=== PATIENT | female | born 1960 | race Caucasian/White ===

== ENCOUNTER 2021-03-16 11:08 | Emergency (ER) | payer BC ==
[~2021-03-16] VITALS: Ht 167.6 cm; Wt 99.8 kg
[~2021-03-16 11:08] MED LIST: IBUPROFEN 800800 M1; PAXIL CR25 MG PO; XANAX 0.5 MG0.5 M1
[2021-03-16] MEDS ORDERED: LISINOPRIL20 MG PO (11:18)
[2021-03-16] MEDS ORDERED: METFORMIN HCL500 M3 PO (11:18)
[2021-03-16] MEDS ORDERED: ZOLOFT100 MG PO (11:18)
[2021-03-16] MEDS ORDERED: AMITRIPTYLINE H50 M3 PO (11:19)
[2021-03-16] MEDS ORDERED: GLYBURIDE 2.52.5 M1 PO (11:20)
[2021-03-16] MEDS ORDERED: ATORVASTATIN CA80 MG PO (11:20)
[2021-03-16 11:31] LABS: ABSOLUTE BASOPHILS 0.1 thou/uL (0.0-0.2); ABSOLUTE EOSINOPHILS 0.1 thou/uL (0.0-0.7); ABSOLUTE LYMPHOCYTES 1.5 thou/uL (0.8-5.3); ABSOLUTE MONOCYTES 0.3 thou/uL (0.0-1.2); ABSOLUTE NEUTROPHILS 4.3 thou/uL (1.6-8.1); BASOPHILS 1.7 %; BE 1.5 mmol/L (-2 to +3); HEMATOCRIT 44.9 % (37.0-47.0); HEMOGLOBIN 15.5 gm/dL (12.0-15.0); LYMPHOCYTES 24.1 %; MCHC 34.6 g/dL (28.0-37.0); MCV 86.7 fL (80.0-100.0); MONOCYTES 5.4 %; MPV 7.5 fl. (7.2-11.1); NUCLEATED RBCS 0 /100WBC; PCO2 VENOUS 52.9 mmHg (41.0-51.0); PLATELET COUNT* 133 thou/uL (150-400); PO2 VENOUS 30.5 mmHg (35.0-45.0); POLYS 67.8 %; RBC 5.18 mil/uL (4.20-5.00); RDW-CV 14.9 % (10.5-14.5); WBC 6.3 thou/uL (4.0-11.0)
[2021-03-16 11:39] LABS: CALCIUM 9.4 mg/dL (8.5-10.1); CREATININE 0.7 mg/dL (0.6-1.3); POTASSIUM 4.8 mmol/L (3.5-5.1)
[2021-03-16 11:42] LABS: APTT 22.8 Seconds (25.0-31.3); PROTIME 10.3 Seconds (9.20-11.50)
[2021-03-16 11:50] LABS: ALBUMIN 3.4 g/dL (3.4-5.0); TOTAL BILIRUBIN 0.5 mg/dL (<0.1-1.0); TOTAL PROTEIN 6.8 g/dL (6.4-8.2)
[2021-03-16 12:20] VITALS: BP 142/72
[2021-03-16 12:21] LABS: URINE BILIRUBIN NEGATIVE (Negative); URINE BLOOD TRACE (Negative); URINE CLARITY CLEAR; URINE COLOR YELLOW; URINE GLUCOSE-RANDOM 3+ (Negative); URINE KETONES TRACE (Negative); URINE LEUKOCYTES-REFLEX NEGATIVE (Negative); URINE NITRITE-REFLEX NEGATIVE (Negative); URINE PROTEIN NEGATIVE (Negative); URINE SPECIFIC GRAVITY >= 1.030 (1.005-1.030)
--- NOTE | 2021-03-16 15:46 | EKG ---
[place] [address] ELECTROCARDIOGRAM REPORT Name: GAL SHARPE Room: [facility]#: [id number] Admission: 03/16/21 Attend Phys: Discharge: 03/16/21 Date of : 62 Date of Service: 03/16/21 1131 Report #: [id number] THIS REPORT FOR: //name// [facility] ED Test Date: 2021-03-16 Test Time: 11:31:07 Pat Name: GAL SHARPE Department: Room: Gender: Placement Director: [facility] : 1960 Requested By: Ronnie Seals Order Number: [id number] MD: Yao Tejada Measurements Intervals Russell Rate: 81 P: 47 NE: 134 QRS: 83 QRSD: 94 T: 82 QT: 441 QTc: 512 Interpretive Statements Sinus rhythm Borderline T abnormalities, anterior leads Compared to ECG 08/11/2010 05:44:50 T-wave abnormality still present Electronically Signed On 03-16-2021 15:46:35 CDT by Yao Tejada [email or web address] <ELECTRONICALLY SIGNED> By: Yao Tejada MD, FAC 03/16/21 1546 1131 1131 Yao Tejada MD, [facility] /EPI
== END 2021-03-16 12:20 | disposition home or self-care (01) ==
LOC: M.ERS 11:08
PROVIDERS: Family Medicine
DX: E11.9 Type 2 diabetes mellitus without complications (principal); Z20.822 Contact with and (suspected) exposure to COVID-19; R53.1 Weakness; Z79.899 Other long term (current) drug therapy; Z98.890 Other specified postprocedural states; Z79.84 Long term (current) use of oral hypoglycemic drugs

== ENCOUNTER → 2021-04-07 | Outpatient (CLI) | payer BC ==
[~2021-04-07] MED LIST changes: +AMITRIPTYLINE H50 M3 PO; +ATORVASTATIN CA80 MG PO; +GLYBURIDE 2.52.5 M1 PO; +LISINOPRIL20 MG PO; +METFORMIN HCL500 M3 PO; +ZOLOFT100 MG PO
[2021-04-07 14:40] LABS: ABSOLUTE EOSINOPHILS 0.1 thou/uL (0.0-0.7); ABSOLUTE LYMPHOCYTES 2.4 thou/uL (0.8-5.3); ABSOLUTE MONOCYTES 0.7 thou/uL (0.0-1.2); ABSOLUTE NEUTROPHILS 6.8 thou/uL (1.6-8.1); BASOPHILS 0.5 %; EOSINOPHILS 0.6 %; HEMATOCRIT 49.9 % (37.0-47.0); HEMOGLOBIN 17.4 gm/dL (12.0-15.0); LYMPHOCYTES 24.3 %; MCV 85.7 fL (80.0-100.0); MONOCYTES 6.7 %; MPV 7.5 fl. (7.2-11.1); NUCLEATED RBCS 0 /100WBC; PLATELET COUNT* 205 thou/uL (150-400); POLYS 67.9 %; RBC 5.82 mil/uL (4.20-5.00); RDW-CV 14.9 % (10.5-14.5); WBC 10.1 thou/uL (4.0-11.0)
[2021-04-07 14:53] LABS: ALBUMIN 4.1 g/dL (3.4-5.0); ALKALINE PHOSPHATASE 205 U/L (46-116); ANION GAP 9 mmol/L (7-16); BUN 15 mg/dL (7-18); CALCIUM 9.5 mg/dL (8.5-10.1); CHLORIDE 96 mmol/L (98-107); CHOLESTEROL 266 mg/dL (<200); CO2 26 mmol/L (21-32); CREATININE 0.9 mg/dL (0.6-1.3); GLUCOSE 324 mg/dL (70-99); HDL CHOLESTEROL 41 mg/dL (>40); LDL CHOLESTEROL 179 mg/dL (<100); POTASSIUM 4.7 mmol/L (3.5-5.1); SGOT 74 U/L (15-37); SGPT 103 U/L (30-65); SODIUM 131 mmol/L (136-145); TC:HDL 6.5 Ratio (Not establshd); TOTAL BILIRUBIN 0.6 mg/dL (<0.1-1.0); TOTAL PROTEIN 7.8 g/dL (6.4-8.2); TRIGLYCERIDE 233 mg/dL (<150); VLDL 47 mg/dL (<40)
[2021-04-07 14:54] LABS: SERUM ASSESSMENT Clear
[2021-04-08 04:07] LABS: GLYCOHEMOGLOBIN (HGB A1C) 11.2 % (4.8-5.6)
== END ==
LOC: M.LAB 14:22
PROVIDERS: ATTEND Family Medicine
DX: M15.0 Primary generalized (osteo)arthritis (principal); E11.65 Type 2 diabetes mellitus with hyperglycemia; I10 Essential (primary) hypertension; E78.2 Mixed hyperlipidemia

== ENCOUNTER 2021-05-04 19:38 | Emergency (ER) | payer BC ==
[~2021-05-04] VITALS: Ht 167.6 cm; Wt 99.8 kg
[2021-05-04] MEDS ORDERED: RYBELSUS7 MG PO (19:50)
[2021-05-04 20:26] LABS: ABSOLUTE BASOPHILS 0.1 thou/uL (0.0-0.2); ABSOLUTE LYMPHOCYTES 1.6 thou/uL (0.8-5.3); ABSOLUTE MONOCYTES 0.5 thou/uL (0.0-1.2); ABSOLUTE NEUTROPHILS 5.4 thou/uL (1.6-8.1); BASOPHILS 1.3 %; EOSINOPHILS 0.5 %; HEMATOCRIT 42.3 % (37.0-47.0); HEMOGLOBIN 14.8 gm/dL (12.0-15.0); LYMPHOCYTES 21.3 %; MCH 30.1 pg (26.0-34.0); MCHC 35.1 g/dL (28.0-37.0); MONOCYTES 6.2 %; MPV 7.4 fl. (7.2-11.1); NUCLEATED RBCS 0 /100WBC; PLATELET COUNT* 138 thou/uL (150-400); POLYS 70.7 %; RBC 4.92 mil/uL (4.20-5.00); WBC 7.6 thou/uL (4.0-11.0)
[2021-05-04 20:31] LABS: CREATININE 0.8 mg/dL (0.6-1.3); POTASSIUM 3.9 mmol/L (3.5-5.1)
[2021-05-04 20:35] LABS: ALBUMIN 3.6 g/dL (3.4-5.0); TOTAL PROTEIN 6.9 g/dL (6.4-8.2)
[2021-05-04 21:30] LABS: URINE BILIRUBIN NEGATIVE (Negative); URINE BLOOD NEGATIVE (Negative); URINE CLARITY CLEAR; URINE COLOR YELLOW; URINE GLUCOSE-RANDOM NEGATIVE (Negative); URINE KETONES NEGATIVE (Negative); URINE LEUKOCYTES-REFLEX NEGATIVE (Negative); URINE NITRITE-REFLEX NEGATIVE (Negative); URINE PROTEIN NEGATIVE (Negative); URINE SPECIFIC GRAVITY <= 1.005 (1.005-1.030)
[2021-05-04 22:03] VITALS: BP 149/70
== END 2021-05-04 22:03 | disposition home or self-care (01) ==
LOC: M.ERS 19:38
PROVIDERS: Personal Emergency Response Attendant
DX: R19.7 Diarrhea, unspecified (principal); Z20.822 Contact with and (suspected) exposure to COVID-19; Z98.890 Other specified postprocedural states; Z86.73 Personal history of transient ischemic attack (TIA), and cerebral infarction without residual deficits

== ENCOUNTER 2021-06-13 18:01 | Emergency (ER) | payer BC ==
[~2021-06-13] VITALS: Ht 167.6 cm; Wt 102.1 kg
[~2021-06-13 18:01] MED LIST changes: +RYBELSUS7 MG PO
[2021-06-13] MEDS ORDERED: ZOLOFT100 MG PO (18:12)
[2021-06-13 20:26] VITALS: BP 136/71
== END 2021-06-13 20:27 | disposition home or self-care (01) ==
LOC: M.ERS 18:01
DX: S09.90XA Unspecified injury of head, initial encounter (principal); Z79.84 Long term (current) use of oral hypoglycemic drugs; Z79.899 Other long term (current) drug therapy; W31.89XA Contact with other specified machinery, initial encounter; Y93.89 Activity, other specified; Y92.89 Other specified places as the place of occurrence of the external cause; Y99.8 Other external cause status

== ENCOUNTER 2021-10-11 14:16 | Emergency (ER) | payer OTHER ==
[~2021-10-11] VITALS: Ht 167.6 cm; Wt 104.3 kg
[2021-10-11 14:24] VITALS: BP 119/69
== END 2021-10-11 15:27 | disposition left against medical advice (07) ==
LOC: M.ERS 14:16
DX: R73.9 Hyperglycemia, unspecified (principal); Z53.21 Procedure and treatment not carried out due to patient leaving prior to being seen by health care provider